=== PATIENT | female | born 1995 | race Caucasian/White ===

== ENCOUNTER 2021-01-10 16:07 | Emergency (ER) | payer BC, MEDICAID ==
[~2021-01-10] VITALS: Ht 170.2 cm; Wt 91.4 kg
[2021-01-10 18:01] LABS: BASOPHILS % (AUTO) 0 % (0-1); EOSINOPHILS % (AUTO) 1 % (1-7); LYMPHOCYTES % (AUTO) 26 % (22-44); MEAN CORPUSCULAR HEMOGLOBIN 29.2 pg (27.0-34.8); MEAN CORPUSCULAR HGB CONC 33.7 g/dL (32.4-35.8); MONOCYTES % (AUTO) 6 % (2-9); NEUTROPHILS % (AUTO) 67 % (42-75); PLATELET COUNT 319 x10^3/uL (130-400); RED BLOOD COUNT 5.02 x10^6/uL (3.82-5.3); RED CELL DISTRIBUTION WIDTH 14.1 % (9.6-15.2)
[2021-01-10 18:13] LABS: ALBUMIN 3.9 g/dL (3.4-5.0); ANION GAP 4 mmol/L (5-15); CALCIUM 9.3 mg/dL (8.5-10.1); CHLORIDE 107 mmol/L (98-107)
[2021-01-10 18:20] LABS: ALANINE AMINOTRANSFERASE 26 U/L (12-78); ALKALINE PHOSPHATASE 105 U/L (45-117); BILIRUBIN,TOTAL 0.4 mg/dL (0.2-1.0); TOTAL PROTEIN 7.9 g/dL (6.4-8.2)
--- NOTE | 2021-01-10 19:23 | NUR ---
PT AMBULATORY TO ROOM 29 W/ C/O LOWER BACK PAIN STARTED 4 DAYS AGO. PT ALSO C/O LOWER PELVIC CRAMPING. PT STATES HER LMP WAS 7 WEEKS AGO AND SHE TOOK 3 TESTS ALL POSITIVE. WENT TO SEE HER OBGYN AND RESULT CAME BACK NEGATIVE. PT STATES CRAMPING BUT NO VB. PT RESTING ON GURNEY. NADN. MONITORS APPLIED. VSS. CALL LIGHT IN REACH. WARM BLANKET PROVIDED.
--- NOTE | 2021-01-10 19:28 | NUR ---
SANTO MCNAMARA AT BEDSIDE FOR EVAL.
[2021-01-10 19:38] LABS: MICROSCOPIC NOT IND
[2021-01-10 20:37] VITALS: BP 107/51
--- NOTE | 2021-01-10 20:37 | NUR ---
PT RESTING ON GURNEY. NADN. MCKEE.
--- NOTE | 2021-01-10 20:44 | NUR ---
REPORT GIVEN TO SDAI AMAYA RN.
--- NOTE | 2021-01-10 21:20 | NUR ---
1st contact c pt. resting on cart in nad. aware of negative u/s & orders for ct. denies any needs. family at bs. will ctm.
--- NOTE | 2021-01-10 21:46 | NUR ---
RECEIVED REPORT FROM JOSE LUIS SANDERSON. ASSUMING CARE AT THIS TIME. JOSE LUIS SANDERSON PLACING PIV, AWAITING CT.
--- NOTE | 2021-01-10 21:49 | NUR ---
PIV PLACED. PT GOING TO CT.
--- NOTE | 2021-01-10 21:50 | NUR ---
PIV ESBT. PT TO CT VIA CART.
[2021-01-10] MEDS ORDERED: OMNIPAQUE 350 MG/ML, 100ML BOTTLE ONE (22:04)
--- NOTE | 2021-01-10 22:55 | NUR ---
REPORT FROM CRISTO SANDERSONVOLUNTEER SERVICES SPECIALIST OF CARE AT THIS TIME
--- NOTE | 2021-01-10 23:34 | NUR ---
Assist RN: discharge instructions given. All questions and concerns addressed. Patient ambulatory with a steady gait. Belongings with patient.
== END 2021-01-10 23:35 | disposition home or self-care (01) ==
LOC: ED 21:25
DX: R10.30 Lower abdominal pain, unspecified (principal); M54.5 Low back pain
CPT/HCPCS: 36415; 74177; 76830; 80053; 81003; 84702; 85025; 99285; Q9967